=== PATIENT | male | born 1935 | race Caucasian/White ===

== ENCOUNTER 2017-04-16 02:38 | Emergency (ER) | payer MEDICARE, BC ==
[2017-04-16 03:25] LABS: A/G RATIO 1.2; ALBUMIN 4.2 g/dL (3.5-5.0); ALKALINE PHOSPHATASE 104 U/L (38-126); ALT 46 U/L (21-72); AST 35 U/L (17-59); BILIRUBIN, TOTAL 0.8 mg/dL (0.2-1.3); BLOOD UREA NITROGEN 16 mg/dL (9-20); CALCIUM 9.5 mg/dL (8.4-10.2); CHLORIDE 101 mmol/L (98-107); GLUCOSE 103 mg/dL (70-100); HEMOGLOBIN 13.4 g/dL (14.0-18.0); MEAN CORPUS. HGB CONCENTRATION 33.4 g/dL (32.0-36.0); MEAN CORPUSCULAR HEMOGLOBIN 31.2 pg (29.0-35.0); POTASSIUM 3.8 mmol/L (3.5-5.1); RED BLOOD COUNT 4.28 X 10^6uL (4.20-6.10); SODIUM 137 mmol/L (137-145); TOTAL PROTEIN 7.6 g/dL (6.3-8.2); WHITE BLOOD COUNT 7.3 X 10^3uL (3.9-10.7)
[2017-04-16 03:26] LABS: BASOPHILS 0.7 % (0.0-2.0); EOSINOPHILS 2.7 % (0.0-6.0); EOSINOPHILS# 0.2 X 10^3uL (0.0-0.4); LYMPHOCYTES 32.6 % (20.0-40.0); LYMPHOCYTES# 2.4 X 10^3uL (0.8-3.8); MEAN PLATELET VOLUME 7.7 fL (7.4-10.4); MONOCYTES 7.8 % (2.0-10.0); MONOCYTES# 0.6 X 10^3uL (0.2-1.0); NEUTROPHILS 56.2 % (54.0-75.0); NEUTROPHILS# 4.1 X 10^3uL (2.6-6.7); PLATELET COUNT 224 X 10^3uL (130-440); RED CELL DISTRIBUTION WIDTH 14.7 % (11.5-14.5)
[2017-04-16 03:27] LABS: BASOPHIL# 0.1 X 10^3uL (0.0-0.1)
[2017-04-16 03:40] LABS: TROPONIN I 0.117 ng/mL (0.00-0.034)
--- NOTE | 2017-04-16 03:41 | RADIOLOGY REPORT ---
XR CHEST RADIOGRAPH 2 views - PA and lateral CLINICAL INFORMATION: Hypoxia. COMPARISON: None. FINDINGS: Lungs are well inflated. Left basilar opacity may reflect atelectasis or consolidation. No pneumothorax. No displaced fractures. Costophrenic angles are clear. Cardiomediastinal silhouette is normal in size. IMPRESSION: Left basilar opacity may reflect atelectasis or consolidation. Final Electronic Signature: This report was electronically signed by Arun Torres MD on 7 3:38 AM. sky /
[2017-04-16 04:08] LABS: INR 2.1
--- NOTE | 2017-04-16 05:19 | ER PHYSICIAN DOCUMENTATION ---
Physician Documentation [facility] Name:John Villegas Age:82 yrs Sex:Male :1935 Arrival Date:04/16/2017 Time:02:38 Bed1 Private MD: Angel Johnson Disposition: 04/16 04:54 Critical Care: not applicable. Chart complete. tl1 Disposition: 04/16/17 05:18 Transfer ordered to . Diagnosis is Dyspnea. - Reason for transfer: Higher level of care. - Accepting physician is Aleksandar Archuleta. - Condition is Good. - Problem is new. - Symptoms are unchanged. COBRA Form completed? Yes Transfer - Mode of Transportation Ambulance HPI: 02:45 This 82 yrs old Male presents to ER with complaints of LOW O2 LEVELS. 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 He had He was on supplemental O2 for a while but has been off that and has been doing well with cardiac rehab and is now on coumadin and Multaq. He drove here from [place], with family today and arrived at about 1730. Since about 2029 he noticed that his pulse-ox was low in the 84-86% range. Since then his O2 sats have been labile on RA. HE has maybe have some mild dyspnea, but no CP, hemoptysis, F/C/S, LE edema, PND or orthopnea.. Historical: - Allergies: No known drug Allergies; - Home Meds: 1. Warfarin Oral 2. Aspirin Oral 3. atorvastatin oral 4. Oxycodone HCl Oral 5. ipratropium bromide inhl 6. levothyroxine oral 7. losartan oral 8. Metoprolol Tartrate Oral 9. montelukast oral 10. Multaq oral 11. [place]-3 oral 12. Omeprazole Oral 13. PreserVision Lutein oral 14. Vitamin E Oral 15. Vitamin D Oral 16. 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 - Ebola Screening: : Patient negative for fever greater than or equal to 101.5 degrees Fahrenheit, and additional compatible Ebola Virus Disease symptoms. Patient denies exposure to infectious person. Patient denies travel to an Ebola-affected area in the 21 days before illness onset. No symptoms or risks identified at this time. . - Immunization history: Pneumococcal vaccine status is unknown, Flu Vaccine < 1 year. - Social history: Smoking status: Patient states was never smoker of tobacco. ROS: 04:51 Cardiovascular: Negative for chest pain, edema, palpitations, paroxysmal nocturnal tl1 dyspnea. 04:51 Respiratory: Positive for Negative for cough, hemoptysis, orthopnea, pleurisy, sputum production, wheezing. 04:51 All other systems are negative. Exam: 04:51 Constitutional: This is a well developed, well nourished patient who is awake, alert, tl1 and in no acute distress. Head/Face: Normocephalic, atraumatic. Eyes: Pupils equal round and reactive to light, extra-ocular motions intact. Lids and lashes normal. Conjunctiva and sclera are non-icteric and not injected. Cornea within normal limits. Periorbital areas with no swelling, redness, or edema. 04:51 Neck: Trachea midline, no thyromegaly or masses palpated, and no cervical tl1 lymphadenopathy. Supple, full range of motion without nuchal rigidity, or vertebral point tenderness. No Meningismus. 04:51 Cardiovascular: Rate: normal, Rhythm: regular, Heart sounds: normal, Edema: is not appreciated, JVD: is not appreciated. 04:51 Respiratory: Respirations: normal, Breath sounds: are normal. 04:51 Abdomen/GI: Inspection: abdomen appears normal, Bowel sounds: normal, Palpation: abdomen is soft and non-tender. 04:51 Musculoskeletal/extremity: Exam is negative for acute changes. 04:51 Musculoskeletal/extremity: Exam is negative for acute changes. 04:51 Skin: Exam negative for acute changes. 04:51 Neuro: Exam negative for acute changes. Vital Signs: 02:49 BP 140 / 85; Pulse 85; Resp 20; Pulse Ox 90% on R/A; mv 03:38 BP 140 / 80; Pulse 75; Resp 18; Pulse Ox 85% on R/A; bw2 04:03 BP 147 / 75; Pulse 75; Resp 18; Pulse Ox 95% 2 lpm ; bw2 04:28 BP 153 / 73; Pulse 58; Resp 18; Pulse Ox 98% on 2 lpm NC; bw2 MDM: 02:45 Patient medically screened. tl1 03:09 ECG:. tl1 04:52 Differential diagnosis: CHF exacerbation, Myocardial Infarction pneumonia, pulmonary tl1 edema, Pulmonary Embolism Unstable Angina. Antibiotic administration: Not indicated. The patient's pulmonary embolism risk score was calculated as follows: No Risks (0 Pts). Data reviewed: vital signs, nurses notes, lab test result(s), cardiac enzymes, CBC, electrolytes, hepatic panel, urinalysis, EKG, radiologic studies, plain films, and as a result, I will *Transfer Patient. Data interpreted: executive sales assistant: rate is 70 beats/min, rhythm is normal sinus rhythm, Pulse oximetry: on room air is 85 %. Test interpretation: by ED physician or midlevel provider: plain radiologic studies. Counseling: I had a detailed discussion with the patient and/or guardian regarding: the historical points, exam findings, and any diagnostic results supporting the discharge/admit diagnosis, lab results, radiology results, the need to transfer to another facility, for higher level of care, [facility] does not immediately have the required specialist. 04:54 Physician consultation: Kathe Sneed was called at 04:35, was contacted at 04:40, tl1 regarding admission, patient's condition, and will see patient PCU at , [id number]. 04/16 03:28 Order name: CBC AUTO DIF, MDIF/RMOR IF IND; Complete Time: 18:28 EDSC 04/16 03:41 Interpretation: WHITE BLOOD COUNT 7.3; HEMOGLOBIN 13.4; HEMATOCRIT 40.0; PLATELET COUNT tl1 224. 04/16 03:32 Order name: COMPREHENSIVE METABOLIC PANEL; Complete Time: 18:28 EDMS 04/16 03:41 Interpretation: Normal. tl1 04/16 03:40 Order name: DDIMER; Complete Time: 18:28 EDMS 04/16 03:41 Interpretation: Normal: DDIMER 204. tl1 04/16 03:44 Order name: BNP,NT-PRO; Complete Time: 18:28 EDSC 04/16 18:27 Interpretation: Abnormal: BNP,NT-PRO 489. [facility] 04/16 03:44 Order name: TROPONIN I; Complete Time: 18:28 EDSC 04/16 18:27 Interpretation: Abnormal: TROPONIN I 0.117. [facility] 04/16 04:19 Order name: PROTIME/INR; Complete Time: 18:28 EDSC 04/16 18:27 Interpretation: Abnormal: THERAPEUTIC. [facility] 04/16 03:43 Order name: CXR 2V 23219; Complete Time: 18:28 [facility] 04/16 02:54 Order name: EKG - 12 Lead; Complete Time: 03:12 tl1 EC:04 Rate is 61 beats/min. Rhythm is regular, Normal Sinus Rhythm. QRS [place] is Normal. [place] tl1 interval is normal at 168 msec. QRS interval is normal at 96 msec. QT interval is normal at 433 msec. No Q waves. T waves are Normal. No ST changes noted. Clinical impression: Normal ECG. Interpreted by me. Reviewed by me. Dispensed Medications: No medications were administered Signatures: Angel Matute MD MD tl1 amari ivan Beth 2
--- NOTE | 2017-04-16 05:19 | ER NURSING DOCUMENTATION ---
Nurse's Notes [facility] Name:John Villegas Age:82 yrs Sex:Male :1935 Arrival Date:04/16/2017 Time:02:38 Bed1 Private MD: Diagnosis:Dyspnea Presentation: 04/16 02:43 Presenting complaint: Patient states: pt has chronic lung disease from amiodarone mv toxicity and noticed his oxygen level was dipping down. Transition of care: Home. Notified ED Physician of patient's arrival and CC Dr. Matute notified. 02:43 Method Of Arrival: Private Vehicle mv 02:43 Acuity: FOSTER 3 mv 02:46 Acuity: FOSTER 2 bw2 Triage Assessment: 03:11 General: Appears in no apparent distress, Behavior is appropriate for age. bw2 Historical: - Allergies: No known drug Allergies; - Home Meds: 1. Warfarin Oral 2. Aspirin Oral 3. atorvastatin oral 4. Oxycodone HCl Oral 5. ipratropium bromide inhl 6. levothyroxine oral 7. losartan oral 8. Metoprolol Tartrate Oral 9. montelukast oral 10. Multaq oral 11. [place]-3 oral 12. Omeprazole Oral 13. PreserVision Lutein oral 14. Vitamin E Oral 15. Vitamin D Oral 16. 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 - Ebola Screening: : Patient negative for fever greater than or equal to 101.5 degrees Fahrenheit, and additional compatible Ebola Virus Disease symptoms. Patient denies exposure to infectious person. Patient denies travel to an Ebola-affected area in the 21 days before illness onset. No symptoms or risks identified at this time. . - Immunization history: Pneumococcal vaccine status is unknown, Flu Vaccine < 1 year. - Social history: Smoking status: Patient states was never smoker of tobacco. Screenin:11 Infectious Disease Risk None. Abuse screen: Denies threats or abuse. Nutritional bw2 screening: No deficits noted. Assessment: 03:10 See Triage Assessment done by same RN. Pain: Denies pain. Respiratory: No deficits bw2 noted. Breath sounds are clear bilaterally. 03:39 Reassessment: on room air pt oxygen saturation was at 85%. pt placed on 2 L O2. pt bw2 responded immediately oxygen sat at 96%. MD notified . Vital Signs: 02:49 BP 140 / 85; Pulse 85; Resp 20; Pulse Ox 90% on R/A; mv 03:38 BP 140 / 80; Pulse 75; Resp 18; Pulse Ox 85% on R/A; bw2 04:03 BP 147 / 75; Pulse 75; Resp 18; Pulse Ox 95% 2 lpm ; bw2 04:28 BP 153 / 73; Pulse 58; Resp 18; Pulse Ox 98% on 2 lpm NC; bw2 ED Course: 02:42 Patient arrived in ED. ma1 02:45 Angel Matute MD is Attending Physician. tl1 02:46 Lady Zamora is Primary Nurse. bw2 02:46 Triage completed. bw2 03:04 EKG done. (by ED staff). bw2 03:11 Valuables Remains with patient Patient has correct armband on for positive bw2 identification. Placed in gown. Cardiac Monitoring On for Nurse Monitoring only. Pulse Ox - RN Monitoring Only NIBP On - RN Monitoring Only. 03:12 Inserted peripheral IV: 18 gauge in left antecubital area and blood collected. bw2 03:49 Notified ED physician, Dr. Matute of critical lab value for trop with actual value of bw2 0.117 No new orders received at this time. Administered Medications: No medications were administered Outcome: 04:31 [facility] Time: April 16, 2017 at 04:31 Patient's face sheet was faxed to accepting facility. Face Sheet included patient's name, address, age, gender, contact information and insurance information. Patient [place] be transported by: [facility] [place]. Nurse and Physician Charting and Notes were sent to Accepting Facility. All tests and/or procedures with results, if applicable, were sent to accepting facility. 05:04 Condition: good bw2 05:04 Report given to Willie ZAMORA 05:04 Discharge Assessment: Patient awake, alert and oriented x 3. No cognitive and/or functional deficits noted. Patient verbalized understanding of disposition instructions. 05:04 Discharge instructions given to patient, family, Instructed on need for transfer Demonstrated understanding of instructions. 05:18 ER care complete, transfer ordered by . tl1 05:18 Patient left the ED. bw2 Signatures: Anabell Montenegro Tom, MD MD tl1 amari ivan Beth bw2 Grecia Lewis
== END 2017-04-16 05:19 | disposition short-term general hospital (02) ==
LOC: ER 02:38
DX: R06.00 Dyspnea, unspecified (principal); R09.02 Hypoxemia; J98.4 Other disorders of lung; T46.2X5S Adverse effect of other antidysrhythmic drugs, sequela; R74.8 Abnormal levels of other serum enzymes; I25.10 Atherosclerotic heart disease of native coronary artery without angina pectoris; I48.91 Unspecified atrial fibrillation; Z79.01 Long term (current) use of anticoagulants; I10 Essential (primary) hypertension; Z79.899 Other long term (current) drug therapy; Z79.82 Long term (current) use of aspirin; Z99.81 Dependence on supplemental oxygen; Z74.3 Need for continuous supervision
CPT/HCPCS: 71020; 80053; 83880; 84484; 85025; 85379; 85610; 93005; 99285; A0425; A0427